=== PATIENT | female | born 1950 | race Caucasian/White ===

== ENCOUNTER 2018-02-16 09:14 | Inpatient (IN) | payer OTHER ==
[~2018-02-16] VITALS: Ht 167.6 cm; Wt 5.0 kg
[~2018-02-16 09:14] MED LIST: AVALIDE 150-12.1 TA1 PO; ESTRADIOL0.5 MG PO; GLIPIZIDE2.5 MG/BO1 PO; LISINOPRIL10 MG PO; METFORMIN HYDRO25 GM MC; NOVOLOG100 U/ML SQ; REGLAN5 MG/5 ML PO; SYNTHROID50 MCG PO; VYTORIN 10-20 M1 TAB PO; YAZ 28 TABLET1 TAB PO
[2018-02-16] MEDS ORDERED: LATANOPROST1 GM (09:42)
[2018-02-16] MEDS ORDERED: NEURONTIN800 MG (09:43)
[2018-02-16] MEDS ORDERED: ATORVASTATIN CA40 MG (09:43)
[2018-02-16] MEDS ORDERED: FERRETTS325 MG (09:43)
[2018-02-16] MEDS ORDERED: COZAAR25 MG (09:44)
[2018-02-16] MEDS ORDERED: ASA81 MG (09:44)
--- NOTE | 2018-02-16 09:45 | NUR ---
PTE REFIERE DOLOR ABDOMINAL DESDE ANOCHE ,CUADRANTE INFERIOR KAMILA.
--- NOTE | 2018-02-16 10:22 | NUR ---
MR NEFF ORIENTA PTE SOBRE TX MEDICO EL CUAL REFIERE ENTENDER.SE LE EXTRAEN MUESTRAS,SE CANALIZA Y SE COLOCA FLUIDO DE MANTENIMIENTO BAJANDO SIN DIFICULTAD.SE ENTERGA CONTRASTE Y SE ORIENTA SOBRE EL MISMO.SE NOTIFICA CT.
== END 2018-02-20 15:41 | DRG 379 ==
LOC: ER 09:14 → SURG 18:37
PROVIDERS: ADMIT Specialist
PROC: BW21ZZZ Computerized Tomography (CT Scan) of Abdomen and Pelvis (ICD-10-PCS; principal; 2018-02-16)
DX: K57.33 Diverticulitis of large intestine without perforation or abscess with bleeding (principal); E03.8 Other specified hypothyroidism; I10 Essential (primary) hypertension; E11.42 Type 2 diabetes mellitus with diabetic polyneuropathy; Z96.41 Presence of insulin pump (external) (internal); E11.649 Type 2 diabetes mellitus with hypoglycemia without coma; E78.49 Other hyperlipidemia

== ENCOUNTER 2018-07-27 09:24 | Outpatient (CLI) | payer OTHER ==
[~2018-07-27 09:24] MED LIST changes: +ASA81 MG; +ATORVASTATIN CA40 MG; +COZAAR25 MG; +FERRETTS325 MG; +LATANOPROST1 GM; +NEURONTIN800 MG
== END 2018-07-27 09:50 | disposition home or self-care (01) ==
LOC: SONOGRAMA 09:24 → MAMO-SONO 11:15
DX: E04.2 Nontoxic multinodular goiter (principal)

== ENCOUNTER → 2018-07-30 | Outpatient (CLI) | payer OTHER | END | disposition home or self-care (01) | LOC: NUCLEAR 11:52 | DX: M81.0 Age-related osteoporosis without current pathological fracture (principal) ==

== ENCOUNTER 2018-08-07 09:17 | Outpatient (CLI) | payer OTHER | END 2018-08-07 13:27 | disposition home or self-care (01) | LOC: MAMO-SONO 09:17 | DX: N63.10 Unspecified lump in the right breast, unspecified quadrant (principal); N63.20 Unspecified lump in the left breast, unspecified quadrant; Z12.31 Encounter for screening mammogram for malignant neoplasm of breast; E03.8 Other specified hypothyroidism; L20.89 Other atopic dermatitis; E78.2 Mixed hyperlipidemia; I10 Essential (primary) hypertension; J45.20 Mild intermittent asthma, uncomplicated; E08.65 Diabetes mellitus due to underlying condition with hyperglycemia; D51.3 Other dietary vitamin B12 deficiency anemia; D51.1 Vitamin B12 deficiency anemia due to selective vitamin B12 malabsorption with proteinuria ==

== ENCOUNTER 2019-04-09 15:33 | Inpatient (IN) | payer OTHER ==
[~2019-04-09] VITALS: Ht 162.6 cm; Wt 76.2 kg
[2019-04-09] MEDS ORDERED: LIPITOR40 M1 (15:56)
[2019-04-09] MEDS ORDERED: VITAMIN D310 MC1 (15:56)
[2019-04-09] MEDS ORDERED: COZAAR25 MG (15:57)
[2019-04-09] MEDS ORDERED: SYNTHROID75 MCG (16:01)
[2019-04-09] MEDS ORDERED: OMEPRAZOLE MAGN20 MG (16:01)
[2019-04-09] MEDS ORDERED: ZETIA10 MG (16:02)
[2019-04-09] MEDS ORDERED: HUMALOG100 UNIT/2 (16:03)
[2019-04-09] MEDS ORDERED: TOUJEO MAX300 UNIT/1 (16:04)
== END 2019-04-13 15:57 | disposition home or self-care (01) | DRG 638 ==
LOC: ER 15:33 → MEDJ 16:45 → ICU-2 16:45 → SEC-K 04-10 10:49 → MEDJ 04-10 11:21
PROVIDERS: ADMIT Specialist
PROC: 4A033R1 Measurement of Arterial Saturation, Peripheral, Percutaneous Approach (ICD-10-PCS; 2019-04-09)
PROC: 3E0F7GC Introduction of Other Therapeutic Substance into Respiratory Tract, Via Natural or Artificial Opening (ICD-10-PCS; 2019-04-09)
PROC: 0T9B70Z Drainage of Bladder with Drainage Device, Via Natural or Artificial Opening (ICD-10-PCS; 2019-04-09)
PROC: 02HV33Z Insertion of Infusion Device into Superior Vena Cava, Percutaneous Approach (ICD-10-PCS; principal; 2019-04-10)
PROC: 4A12X4Z Monitoring of Cardiac Electrical Activity, External Approach (ICD-10-PCS; 2019-04-10)
DX: E10.10 Type 1 diabetes mellitus with ketoacidosis without coma (principal); J45.21 Mild intermittent asthma with (acute) exacerbation; N17.8 Other acute kidney failure; N39.8 Other specified disorders of urinary system; E10.40 Type 1 diabetes mellitus with diabetic neuropathy, unspecified; E86.0 Dehydration; E87.8 Other disorders of electrolyte and fluid balance, not elsewhere classified; E03.8 Other specified hypothyroidism; Z79.4 Long term (current) use of insulin

== ENCOUNTER 2020-03-27 08:19 | Outpatient (CLI) | payer OTHER ==
[~2020-03-27 08:19] MED LIST changes: +HUMALOG100 UNIT/2; +LIPITOR40 M1; +OMEPRAZOLE MAGN20 MG; +SYNTHROID75 MCG; +TOUJEO MAX300 UNIT/1; +VITAMIN D310 MC1; +ZETIA10 MG
== END 2020-03-27 08:43 | disposition home or self-care (01) ==
LOC: RAD 08:19 → MAMO-SONO 10:45
PROVIDERS: ATTEND Specialist
DX: E04.2 Nontoxic multinodular goiter (principal); J45.998 Other asthma

== ENCOUNTER 2020-09-07 07:24 | Outpatient (CLI) | payer OTHER | END 2020-09-07 07:32 | disposition home or self-care (01) | LOC: TOM 07:24 | PROVIDERS: ATTEND Internal Medicine Hematology & Oncology | DX: Q61.02 Congenital multiple renal cysts (principal); K57.90 Diverticulosis of intestine, part unspecified, without perforation or abscess without bleeding; D51.1 Vitamin B12 deficiency anemia due to selective vitamin B12 malabsorption with proteinuria; D51.3 Other dietary vitamin B12 deficiency anemia; E08.65 Diabetes mellitus due to underlying condition with hyperglycemia; J45.50 Severe persistent asthma, uncomplicated; I10 Essential (primary) hypertension; E78.2 Mixed hyperlipidemia; E03.8 Other specified hypothyroidism; L20.89 Other atopic dermatitis | CPT/HCPCS: 74177; Q9965 ==

== ENCOUNTER 2021-05-06 09:33 | Emergency (ER) | payer OTHER ==
[~2021-05-06] VITALS: Ht 160 cm; Wt 78.0 kg
[2021-05-06] MEDS ORDERED: NOVOLOG100 UNIT/1 SQ (09:49)
[2021-05-06] MEDS ORDERED: IPRAT-ALBUT 0.5-3 ML IH (13:33)
== END 2021-05-06 13:36 | disposition home or self-care (01) ==
LOC: ER 09:33
DX: J45.20 Mild intermittent asthma, uncomplicated (principal); R05.9 Cough, unspecified; Z20.822 Contact with and (suspected) exposure to COVID-19; Z88.0 Allergy status to penicillin; E11.9 Type 2 diabetes mellitus without complications; Z79.4 Long term (current) use of insulin; I10 Essential (primary) hypertension

== ENCOUNTER 2021-05-08 11:32 | Emergency (ER) | payer OTHER ==
[~2021-05-08] VITALS: Ht 162.6 cm; Wt 78.0 kg
[~2021-05-08 11:32] MED LIST changes: +IPRAT-ALBUT 0.5-3 ML IH; +NOVOLOG100 UNIT/1 SQ
== END 2021-05-08 18:46 | disposition home or self-care (01) ==
LOC: ER 11:32
DX: R05.3 Chronic cough (principal); E11.9 Type 2 diabetes mellitus without complications; Z79.4 Long term (current) use of insulin; I10 Essential (primary) hypertension; Z88.0 Allergy status to penicillin

== ENCOUNTER 2021-12-11 07:19 | Outpatient (CLI) | payer OTHER | END 2021-12-11 07:22 | disposition home or self-care (01) | LOC: RAD 07:19 | PROVIDERS: ATTEND Internal Medicine Pulmonary Disease | DX: J45.31 Mild persistent asthma with (acute) exacerbation (principal); J44.1 Chronic obstructive pulmonary disease with (acute) exacerbation ==

== ENCOUNTER 2022-01-07 08:49 | Outpatient (CLI) | payer OTHER | END 2022-01-07 08:51 | disposition home or self-care (01) | LOC: SONOGRAMA 08:49 | PROVIDERS: ATTEND Pathology Anatomic Pathology & Clinical Pathology | DX: E03.9 Hypothyroidism, unspecified (principal); E04.1 Nontoxic single thyroid nodule ==

== ENCOUNTER 2022-01-17 10:38 | Outpatient (CLI) | payer OTHER | END 2022-01-17 10:43 | disposition home or self-care (01) | LOC: RAD 10:38 | PROVIDERS: ATTEND Specialist | DX: M77.30 Calcaneal spur, unspecified foot (principal) ==

== ENCOUNTER → 2022-04-24 | Emergency (ER) | payer OTHER ==
[~2022-04-24] VITALS: Ht 154.9 cm; Wt 71.2 kg
== END | disposition home or self-care (01) ==
LOC: ER 15:26
DX: I10 Essential (primary) hypertension (principal); Z88.0 Allergy status to penicillin

== ENCOUNTER 2023-08-22 11:31 | Outpatient (CLI) | payer OTHER | END 2023-08-22 11:32 | disposition home or self-care (01) | LOC: NUCLEAR 11:31 | PROVIDERS: ATTEND Specialist | DX: M81.0 Age-related osteoporosis without current pathological fracture (principal); Z13.820 Encounter for screening for osteoporosis ==

== ENCOUNTER → 2023-09-19 09:19 | Outpatient (CLI) | payer OTHER | END | disposition home or self-care (01) | LOC: NUCLEAR 09-11 07:00 | PROVIDERS: ATTEND Specialist | DX: D35.1 Benign neoplasm of parathyroid gland (principal) | CPT/HCPCS: 78070; A9500 ==

== ENCOUNTER 2024-08-04 07:21 | Outpatient (CLI) | payer OTHER | END 2024-08-04 07:22 | disposition home or self-care (01) | LOC: NUCLEAR 07:21 | PROVIDERS: ATTEND Specialist | DX: I82.409 Acute embolism and thrombosis of unspecified deep veins of unspecified lower extremity (principal); I87.2 Venous insufficiency (chronic) (peripheral) ==